=== PATIENT | female | born 1955 | race Caucasian/White ===

== ENCOUNTER 2021-09-23 10:34 | Observation (INO) ==
[2021-09-23] MEDS ORDERED: 0.9 % Sodium Chloride 1,000 ML IVC ONE ×2 (11:50→15:07)
[2021-09-23] MEDS ORDERED: Ondansetron 4 MG/2 ML VIAL IVP ONE (11:50)
[2021-09-23] MEDS ORDERED: *HR* FentaNYL (PF) 100 MCG/2 ML VIAL IVP ONE (11:51)
[2021-09-23] MEDS ORDERED: Iopamidol - 370 500 ML MLS IVP ONE (11:51)
[2021-09-23 12:27] LABS: Basophils # 0.1 K/mcL (0.0-0.2); Basophils % 0.4 %; Eosinophils # 0.5 K/mcL (0.0-0.6); Eosinophils % 3.7 %; Hematocrit 44.9 % (35.3-44.9); Hemoglobin 15.1 g/dL (11.5-15.4); Immature Granulocytes % 0.9 % (0-4); Lymphocytes # 0.8 K/mcL (0.6-4.6); Lymphocytes % 5.4 %; Mean Corpuscular HGB Conc 33.6 g/dL (31.6-35.5); Mean Corpuscular Hemoglobin 31.5 pg (28.0-33.3); Mean Corpuscular Volume 93.5 fL (83.0-100.0); Monocytes # 0.5 K/mcL (0.0-1.3); Monocytes % 3.3 %; Neutrophils # 11.9 K/mcL (1.6-8.9); Platelet Count 288 K/mcL (140-400); Red Cell Distribution Width 12.7 % (11.5-14.5); Segmented Neutrophils % 86.3 %; White Blood Count 13.8 K/mcL (4.3-11.1)
[2021-09-23 12:55] LABS: Alanine Aminotransferase 84 Units/L (7-52); Albumin 3.9 g/dL (3.5-5.7); Albumin/Globulin Ratio 1.3 (1.1-2.2); Alkaline Phosphatase 150 Units/L (34-104); Aspartate Amino Transferase 59 Units/L (13-39); BUN/Creatinine Ratio 12 (6-26); Bilirubin,Direct 0.1 mg/dL (0.0-0.2); Bilirubin,Indirect 0.7 mg/dL (0.0-1.0); Bilirubin,Total 0.8 mg/dL (0.3-1.0); Blood Urea Nitrogen 25 mg/dL (8-23); Calcium 9.3 mg/dL (8.6-10.3); Carbon Dioxide 26 mEq/L (23-29); Chloride 93 mEq/L (98-107); Glucose 126 mg/dL (70-105); Lipase 23 Units/L (11-82); Osmolality,Calculated 280 (280-300); Sodium 132 mEq/L (136-145); Total Protein 6.9 g/dL (6.4-8.9); Troponin I < 0.03 ng/mL (< 0.04); eGFR For African Americans 30 (> 60); eGFR For Non-African Americans 25 (> 60)
[2021-09-23 13:14] LABS: Influenza A PCR Negative (Negative); Influenza B PCR Negative (Negative); Resp. Syncytial Virus PCR Negative (Negative)
[2021-09-23 13:28] LABS: SARS-CoV-2 by PCR (In House) Negative (Negative)
[2021-09-23 13:30] LABS: Bilirubin,Urine Negative (Negative); Blood,Urine Small (Negative); Color,Urine Yellow (Yellow); Glucose,Urine (UA) 100 mg/dL (Normal); Ketones,Urine Negative (Negative); Leukocyte Esterase,Urine Large (Negative); Nitrite,Urine Negative (Negative); Protein,Urine 30 mg/dL (Neg-Trace); Specific Gravity,Urine 1.015 (1.010-1.025); Urobilinogen,Urine Normal (Normal)
[2021-09-23 13:43] LABS: Clarity,Urine Slightly Hazy (Clear)
[2021-09-23 13:46] LABS: Bacteria,Urine Present per hpf (None-Few); RBC,Urine Present per hpf (0-3); Squamous Epithelial Cell,Urine Present per hpf (None-Few); WBC,Urine Present per hpf (0-3)
[2021-09-23] MEDS ORDERED: cefTRIAXone 1,000 MG in 0.9 % Sodium Chloride 10 ML IVP ONE (13:52)
[2021-09-23] MEDS ORDERED: Naloxone 0.4 MG/ML INJ IVP PRN (13:59)
[2021-09-23] MEDS ORDERED: Ondansetron 4 MG/2 ML VIAL IVP PRN (14:00)
[2021-09-23] MEDS ORDERED: *HR* OxyCODONE Immed Rel 5 MG TABLET PO PRN (14:00)
[2021-09-23] MEDS: 0.9 % Sodium Chloride 1,000 ML IVC SCH ×2 (16:22→23:37)
[2021-09-23] MEDS: *HR* Heparin 5,000 UNIT/ML VIAL SQ SCH (18:13)
[2021-09-24 03:17] LABS: Basophils % 0.4 %; Eosinophils # 0.6 K/mcL (0.0-0.6); Eosinophils % 7.9 %; Hematocrit 37.7 % (35.3-44.9); Lymphocytes # 0.8 K/mcL (0.6-4.6); Lymphocytes % 11.3 %; Mean Corpuscular HGB Conc 33.7 g/dL (31.6-35.5); Mean Corpuscular Hemoglobin 31.1 pg (28.0-33.3); Mean Corpuscular Volume 92.2 fL (83.0-100.0); Monocytes # 0.3 K/mcL (0.0-1.3); Monocytes % 4.8 %; Neutrophils # 5.2 K/mcL (1.6-8.9); Platelet Count 216 K/mcL (140-400); Red Blood Count 4.09 M/mcL (3.82-4.97); Red Cell Distribution Width 12.8 % (11.5-14.5); Segmented Neutrophils % 74.6 %; White Blood Count 6.9 K/mcL (4.3-11.1)
[2021-09-24 03:19] LABS: Hemoglobin 12.7 g/dL (11.5-15.4)
[2021-09-24 03:36] LABS: Calcium 8.4 mg/dL (8.6-10.3); Magnesium 1.3 mg/dL (1.6-2.6); Phosphorous 2.6 mg/dL (2.7-4.5); Potassium 2.6 mEq/L (3.5-5.1)
[2021-09-24] MEDS: *HR* Heparin 5,000 UNIT/ML VIAL SQ SCH ×2 (06:42→17:18)
[2021-09-24] MEDS: 0.9 % Sodium Chloride 1,000 ML IVC SCH ×3 (06:42→15:40)
[2021-09-24 08:57] LABS: Albumin 3.2 g/dL (3.5-5.7); Albumin/Globulin Ratio 1.3 (1.1-2.2); Bilirubin,Direct 0.2 mg/dL (0.0-0.2); Bilirubin,Indirect 0.3 mg/dL (0.0-1.0); Bilirubin,Total 0.5 mg/dL (0.3-1.0); Globulin 2.4 g/dL (2.4-3.5); Total Protein 5.6 g/dL (6.4-8.9)
[2021-09-24] MEDS: cefTRIAXone 1,000 MG in Water for inj. (sterile) 10 ML IVP SCH (09:06)
[2021-09-24] MEDS: Metoprolol XL (24 HR) Succ 50 MG TAB.ER.24H PO SCH (09:06)
[2021-09-24] MEDS: Venlafaxine XR (24 HR) 150 MG CAP.ER.24H PO SCH (09:06)
[2021-09-25 00:29] VITALS: TEMP 98.1
[2021-09-25 04:50] LABS: BUN/Creatinine Ratio 16 (6-26); Blood Urea Nitrogen 16 mg/dL (8-23); Calcium 8.7 mg/dL (8.6-10.3); Carbon Dioxide 28 mEq/L (23-29); Chloride 109 mEq/L (98-107); Glucose 113 mg/dL (70-105); Osmolality,Calculated 298 (280-300); Phosphorous 2.5 mg/dL (2.7-4.5); Potassium 3.3 mEq/L (3.5-5.1); Sodium 143 mEq/L (136-145); eGFR For African Americans > 60 (> 60); eGFR For Non-African Americans 58 (> 60)
[2021-09-25] MEDS: 0.9 % Sodium Chloride 1,000 ML IVC SCH (04:57)
[2021-09-25] MEDS: *HR* Heparin 5,000 UNIT/ML VIAL SQ SCH (05:52)
[2021-09-25 07:14] VITALS: BP 149/78; PULSE 83; O2SAT 96
[2021-09-25] MEDS ORDERED: Losartan/HCTZ 50-12.5 TABLET PO SCH (09:00)
[2021-09-25] MEDS ORDERED: amLODIPine 5 MG TABLET PO SCH (09:00)
[2021-09-25 09:30] LABS: Alanine Aminotransferase 60 Units/L (7-52); Albumin 3.2 g/dL (3.5-5.7); Albumin/Globulin Ratio 1.3 (1.1-2.2); Alkaline Phosphatase 126 Units/L (34-104); Aspartate Amino Transferase 38 Units/L (13-39); Bilirubin,Indirect 0.3 mg/dL (0.0-1.0); Bilirubin,Total 0.3 mg/dL (0.3-1.0); Globulin 2.5 g/dL (2.4-3.5); Total Protein 5.7 g/dL (6.4-8.9)
[2021-09-25] MEDS: cefTRIAXone 1,000 MG in Water for inj. (sterile) 10 ML IVP SCH (09:47)
[2021-09-25] MEDS: Metoprolol XL (24 HR) Succ 50 MG TAB.ER.24H PO SCH (09:47)
[2021-09-25] MEDS: Venlafaxine XR (24 HR) 150 MG CAP.ER.24H PO SCH (09:47)
== END 2021-09-25 10:30 | disposition home or self-care (01) ==
LOC: 3ANU 10:34 → EMEROOARM 10:34 → SUATTDRO 15:10 → 3ANU 16:06
PROVIDERS: ADMIT Internal Medicine; ATTEND Internal Medicine